=== PATIENT | female | born 1955 ===

== ENCOUNTER 2017-05-20 21:09 | Emergency (ER) | payer BC ==
[2017-05-20 21:23] VITALS: BP 134/67
[2017-05-20] MEDS ORDERED: Ibuprofen 600 MG Tab PO ONE (21:51)
--- NOTE | 2017-05-20 21:57 | EDM.PDOC ---
ED HPI GENERAL MEDICAL PROBLEM - General Chief Complaint: Upper Extremity Injury/Pain Stated Complaint: POSS WRIST INJURY Time Seen by Provider: 05/20/17 21:17 Source of Information: Reports: Patient, RN Notes Reviewed History Limitations: Reports: No Limitations - History of Present Illness INITIAL COMMENTS - FREE TEXT/NARRATIVE: The patient states that she was in her driveway around 17:00 to 17:30 tonight, looking into her family's car, holding a pizza, when she turned to walk into the house, not realizing that her granddaughter was standing right next to her. She fell in an attempt to avoid knocking her granddaughter over, landing on an outstretched left hand on the concrete. She now presents with pain and mild swelling to the dorsum of her left wrist. She initially had pain to moving her fingers, although that has lessened. She is otherwise uninjured. No prior left wrist injury. The patient's PCP is Regina Monterroso. Left Wrist Pain Score (Numeric/FACES): 9 - Related Data Allergies Allergy/AdvReac Type Severity Reaction Status Date / Time No Known Allergies Allergy Verified 05/20/17 21:16 Home Meds: Home Meds Fenofibrate Nanocrystallized [Tricor] 145 mg PO DAILY 05/20/17 [History] Latanoprost [Latanoprost] 1 drop EYEBOTH DAILY 05/20/17 [History] Sertraline HCl [Sertraline HCl] 50 mg PO DAILY 05/20/17 [History] Timolol Maleate [Timolol Maleate] 1 drop EYEBOTH DAILYBH 05/20/17 [History] Past Medical History HEENT History: Reports: Glaucoma Cardiovascular History: Reports: Other (See Below) (High TG's) Gastrointestinal History: Reports: Diverticulosis Psychiatric History: Reports: Depression Endocrine/Metabolic History: Reports: Obesity/BMI 30+ - Past Surgical History HEENT Surgical History: Reports: Adenoidectomy, Tonsillectomy GI Surgical History: Reports: Other (See Below) (Peraesophageal hernia repair) Female Surgical History: Reports: D&C (x 1) Musculoskeletal Surgical History: Reports: Other (See Below) (Left patella repair) Social & Family History - Tobacco Use Smoking Status *Q: Former Smoker Used Tobacco, but Quit: No - Alcohol Use Alcohol Use History: Yes Alcohol Use Frequency: Rarely - Recreational Drug Use Recreational Drug Use: No - Living Situation & Occupation Living situation: Reports: , with Spouse 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) Review of Systems - Review of Systems Review Of Systems: See Below Constitutional: Reports: No Symptoms Eyes: Reports: No Symptoms Ears: Reports: No Symptoms Nose: Reports: No Symptoms Mouth/Throat: Reports: No Symptoms Respiratory: Reports: No Symptoms Cardiovascular: Reports: No Symptoms GI/Abdominal: Reports: Abdominal Pain (cramps, 2 days ago), Diarrhea (2 days ago ) Genitourinary: Reports: No Symptoms Musculoskeletal: Reports: No Symptoms Skin: Reports: No Symptoms Neurological: Reports: No Symptoms Psychiatric: Reports: No Symptoms ED EXAM, GENERAL - Physical Exam Exam: See Below Exam Limited By: No Limitations General Appearance: Alert, WD/WN, No Apparent Distress Extremities: Other (Mild swelling to the dorsal aspect of the left wrist, when compared to the right, but no other visible abnormalities, such as erythema, ecchymosis, or abrasion. There is mild tenderness to palpation of the dorsal wrist, but not to the distal radius or ulna. Pain is not induced in the wrist with compression of the forearm. The pain is induced in the dorsal wrist with attempts at ROM. Neurovascular status of the left upper extremity is intact.) Neurological: Alert, Oriented, Normal Cognition Psychiatric: Normal Affect Skin Exam: Warm, Dry, Intact, Normal Color, No Rash Course - Vital Signs Last Recorded V/S: Last Vital Signs Temp 36.9 C 05/20/17 21:18 Pulse 56 L 05/20/17 21:18 Resp 18 05/20/17 21:18 BP 134/67 05/20/17 21:18 Pulse Ox 98 05/20/17 21:18 - Orders/Labs/Meds Orders: Active Orders 24 hr Category Date Time Status Wrist Comp Min 3V Lt [CR] Stat Exams 05/20/17 21:50 Taken Meds: Medications Discontinued Medications Generic Name Dose Route Start Last Admin Trade Name Freq PRN Reason Stop Dose Admin Ibuprofen 600 mg 05/20/17 21:51 05/20/17 21:57 Motrin PO 05/20/17 21:52 600 mg ONETIME ONE Administration - Re-Assessments/Exams Free Text/Narrative Re-Assessment/Exam: 05/20/17 23:04 4 view radiographs of the left wrist appear to be unremarkable. No fracture or dislocation identified. Formal read per the Radiologist pending. 05/20/17 23:07 X-ray results discussed with the patient. She appears to have sprained her left wrist. I'm recommending ice packs and Tylenol or ibuprofen for the next few days. I will refer her to Dr. Peraza, should her wrist not improve by next week. Departure - Departure Time of Disposition: 23:08 Disposition: Home, Self-Care 01 Condition: Good Clinical Impression: Left wrist sprain - Discharge Information Referrals: Regina Monterroso NP [Primary Care Provider] - Juan Peraza MD [Physician] - Forms: ED Department Discharge Additional Instructions: You were seen in the emergency room after tripping, falling, and injuring your left wrist. Workup in the ER included x-rays of your left wrist. No broken bones or dislocations are seen. You have MOST LIKELY sprained your left wrist. We recommend you apply an ice pack for 10-15 minutes, 4-5 times a day, the back of your wrist for the next 2 days, to help minimize swelling. Take [id number] Tylenol or ibuprofen as needed for discomfort. You may use your hand and wrist as tolerated. If your symptoms have not improved by next week, please follow-up with the Orthopedic Surgeon Dr. Peraza. If any other problems, please do not hesitate to return to the ER. - My Orders Last 24 Hours: My Active Orders 05/20/17 21:50 Wrist Comp Min 3V Lt [CR] Stat - Assessment/Plan Last 24 Hours: My Active Orders 05/20/17 21:50 Wrist Comp Min 3V Lt [CR] Stat
--- NOTE | 2017-05-21 08:33 | CR ---
Left wrist: Four views of the left wrist were obtained. Comparison: No prior wrist exam. Joint spaces are maintained. No fracture, dislocation or other bony abnormality is identified. Impression: 1. Nothing acute is appreciated on left wrist exam. Diagnostic code #1
== END 2017-05-20 23:24 | disposition home or self-care (01) ==
LOC: JD.ED 21:09
DX: S63.502A Unspecified sprain of left wrist, initial encounter (principal); F32.9 Major depressive disorder, single episode, unspecified; E66.9 Obesity, unspecified; Z98.890 Other specified postprocedural states; Z87.891 Personal history of nicotine dependence; Z79.899 Other long term (current) drug therapy; W19.XXXA Unspecified fall, initial encounter
CPT/HCPCS: 73110; 99283; A9270